=== PATIENT | male | born 1960 | race Caucasian/White ===

== ENCOUNTER 2018-10-12 14:24 | Inpatient (IN) | payer OTHER ==
[2018-10-12 18:04] VITALS: BMI 22.8
--- NOTE | 2018-10-12 18:41 | HP ---
CIWA Score Nausea/Vomitin-No Nausea/No Vomiting Muscle Tremors: 1-None Visible, but [place] Anxiety: 4-Mod. Anxious/Guarded Agitation: 4-Moderately Restless Paroxysmal Sweats: 3 Orientation: 0-Oriented Tacttile Disturbances: 0-None Auditory Disturbances: 0-None Visual Disturbances: 2-Mild Sensitivity Headache: 0-None Present CIWA-Ar Total Score: 14 - Admission Criteria OASAS Guidelines: Admission for Medically Managed Detox: Requires at least one of the followin. CIWA greater than 12 2. Seizures within the past 24 hours 3. Delirium tremens within the past 24 hours 4. Hallucinations within the past 24 hours 5. Acute intervention needed for co occurring medical disorder 6. Acute intervention needed for co occurring psychiatric disorder 7. Severe withdrawal that cannot be handled at a lower level of care (continued vomiting, continued diarrhea, abnormal vital signs) requiring intravenous medication and/or fluids 8. Admission ROS BHS - HPI Allergies/Adverse Reactions: Allergies Allergy/AdvReac Type Severity Reaction Status Date / Time No Known Allergies Allergy Verified 10/12/18 17:40 History of Present Illness: pt here requesting detox from etoh use , reports 3 beers /day x 20 years , reports symptoms if not drinking as above , cravings " I drink when I got money " , tobacco - 1 ppd . Pt is very poor historian , minimizing use , reports moderate memory loss. PMHX - denies PSHx : ying knees 5 years ago tkr meds - see list Exam Limitations: No Limitations, Clinical Condition - Ebola screening Have you traveled outside of the country in the last 21 days: No (N) Have you had contact with anyone from an Ebola affected area: No Do you have a fever: No - Review of Systems Constitutional: See HPI EENT: reports: See HPI, Other (denies vision changes, denies dysphagia) Respiratory: reports: No Symptoms reported Cardiac: reports: No Symptoms Reported GI: reports: No Symptoms Reported : reports: No Symptoms Reported Musculoskeletal: reports: No Symptoms Reported Integumentary: reports: No Symptoms Reported Neuro: reports: No Symptoms reported Endocrine: reports: No Symptoms Reported Psychiatric: reports: Orientated x3, Agitated, Anxious Patient History - Smoking Cessation Smoking history: Current every day smoker Have you smoked in the past 12 months: Yes Aproximately how many cigarettes per day: 20 Hx Chewing Tobacco Use: No Initiated information on smoking cessation: No - Substances abused Alcohol Substance route: Oral Frequency: Daily Amount used: 2 beers Age of first use: 18 Date of last use: 10/12/18 Family Disease History - Family Disease History Family History: Denies Admission Physical Exam BHS - Vital Signs Vital Signs: Vital Signs - 24 hr 10/12/18 10/12/18 17:59 18:29 Temperature 97.8 F 97.8 F Pulse Rate 74 74 Respiratory 18 18 Rate Blood Pressure 137/59 L 137/59 L - Physical General Appearance: Yes: Disheveled, Moderate Distress, Alcohol on Breath, Intoxicated, Anxious HEENTM: Yes: EOMI, Hearing grossly Normal, Normocephalic, Normal Voice, Other ( poor dentition, many missing teeth) Respiratory: Yes: Chest Non-Tender, Lungs Clear, Normal Breath Sounds Neck: Yes: No masses,lesions,Nodules, Trachea in good position Cardiology: Yes: Regular Rhythm, Regular Rate, S1, S2 Abdominal: Yes: Non Tender, Soft Back: Yes: Normal Inspection Musculoskeletal: Yes: Joint Stiffness (r knee decreased AROM , + crepitus), Other (ambulating w/ cane for r knee pain / balance/ stability .) Extremities: Yes: Non-Tender, Tremors, Erythema (ying hands , oa deformities) Neurological: Yes: Motor Strength 5/5 Integumentary: Yes: Warm - Diagnostic (1) Alcohol dependence Current Visit: Yes Status: Acute Qualifiers: Substance use status: uncomplicated Qualified Code(s): F10.20 - Alcohol dependence, uncomplicated Breathalyzer - Breathalyzer Breathalyzer: 0.031 Urine Drug Screen - Test Device Lot number: [id number] Expiration date: 06/08/20 - Control Is test valid?: Yes - Results Drug screen NEGATIVE: No Urine drug screen results: THC-Marijuana Inpatient Rehab Admission - Rehab Decision to Admit Inpatient rehab admission?: No
[2018-10-12] MEDS ORDERED: NICOTINE POLACRILEX 2 MG GUM BUC PRN (18:47)
[2018-10-12] MEDS ORDERED: MENTHOL/PHENOL 1 EACH UD MM PRN (18:47)
[2018-10-12] MEDS ORDERED: BISMUTH SUBSALICYLATE 524 MG/30 ML UD PO PRN (18:47)
[2018-10-12] MEDS ORDERED: MAGNESIUM HYDROX 2400MG/30ML ORAL SUSPENSION 30 ML CUP PO PRN (18:47)
[2018-10-12] MEDS ORDERED: MAGNESIUM CITRATE 300 ML BOTTLE PO PRN (18:47)
[2018-10-12] MEDS ORDERED: ACETAMINOPHEN 325 MG TABLET (FP) PO PRN ×2 (18:47)
[2018-10-12] MEDS: diazePAM 5 MG TABLET PO PRN (20:16)
[2018-10-12] MEDS: NAPROXEN 500 MG TABLET (FP) PO SCH (22:48)
[2018-10-12] MEDS: THIAMINE HCL 100 MG TABLET (FP) PO SCH (22:48)
[2018-10-12] MEDS: diazePAM 5 MG TABLET PO SCH (22:48)
[2018-10-13] MEDS: diazePAM 5 MG TABLET PO SCH ×3 (06:07→22:37)
[2018-10-13] MEDS: diazePAM 5 MG TABLET PO PRN (08:47)
[2018-10-13] MEDS ORDERED: PATIENT'S OWN MEDICATION (NON-FORMULARY) (Omeprazole 40 MG) PO SCH ×2 (10:00)
[2018-10-13 10:08] LABS: HEMATOCRIT 43.4 % (35.4-49); HEMOGLOBIN 14.2 GM/dL (11.7-16.9); MCH 33.3 pg (25.7-33.7); MCHC 32.6 g/dl (32.0-35.9); MEAN PLT VOLUME 8.4 fl (7.5-11.1); PLATELET COUNT 171 K/MM3 (134-434); RBC 4.26 M/mm3 (4.00-5.60); RDW 15.4 % (11.9-15.9); WHITE BLOOD COUNT 8.1 K/mm3 (4.0-10.0)
[2018-10-13 10:12] LABS: ALBUMIN 3.8 g/dl (3.4-5.0); ALK PHOS 95 U/L (45-117); ANION GAP 6 MMOL/L (8-16); BILIRUBIN,TOTAL 0.5 mg/dL (0.2-1); BLOOD UREA NITROGEN 16 mg/dL (7-18); CALCIUM 8.6 mg/dL (8.5-10.1); CHLORIDE 105 mmol/L (98-107); CO2 29 mmol/L (21-32); CREATININE 0.9 mg/dL (0.55-1.3); GLUCOSE,RANDOM 94 mg/dL (74-106); POTASSIUM 3.8 mmol/L (3.5-5.1); SGOT/AST 38 U/L (15-37); SGPT/ALT 41 U/L (13-61); SODIUM 140 mmol/L (136-145)
[2018-10-13] MEDS: METHYL SALICYLATE/MENTHOL OINT 30 GM TUBE TP SCH (10:29)
[2018-10-13] MEDS: PRENATAL VITAMINS W/ FOLIC ACID TABLET (FP) PO SCH (10:29)
[2018-10-13] MEDS: PANTOPRAZOLE 40 MG TABLET (FP) PO SCH (10:30)
[2018-10-13] MEDS: NAPROXEN 500 MG TABLET (FP) PO SCH ×2 (10:30→22:37)
--- NOTE | 2018-10-13 11:38 | EKG ---
Test Reason : Blood Pressure : / mmHG Vent. Rate : 060 BPM Atrial Rate : 060 BPM P-R Int : 120 ms QRS Dur : 088 ms QT Int : 452 ms P-R-T Axes : 015 066 076 degrees QTc Int : 452 ms NORMAL SINUS RHYTHM NORMAL ECG NO PREVIOUS ECGS AVAILABLE Confirmed by DAISHA LEE, BRY ([id number]) on 10/13/2018 11:38:23 AM Referred By: Confirmed By:BRY ASHTON MD
[2018-10-13] MEDS ORDERED: METHOCARBAMOL 500 MG TABLET PO PRN (13:27)
--- NOTE | 2018-10-13 14:00 | PN ---
S CIWA - CIWA Score Nausea/Vomitin-No Nausea/No Vomiting Muscle Tremors: 3 Anxiety: 3 Agitation: 1-Slight > Activity Paroxysmal Sweats: 3 Orientation: 0-Oriented Tacttile Disturbances: 0-None Auditory Disturbances: 2-Mild Harshness/Frighten Visual Disturbances: 0-None Headache: 0-None Present CIWA-Ar Total Score: 12 BHS Progress Note (SOAP) Subjective: Tremors, Anxious, Sweating, Body Aches. Objective: PATIENT A & O X 3, OBSERVED AMBULATING ON UNIT. IN NO ACUTE DISTRESS. 10/13/18 14:01 Vital Signs Temperature 98.1 F 10/13/18 13:19 Pulse Rate 61 10/13/18 13:19 Respiratory Rate 18 10/13/18 13:19 Blood Pressure 141/78 10/13/18 13:19 O2 Sat by Pulse Oximetry (%) Laboratory Tests 10/13/18 10/13/18 10/13/18 07:45 07:45 07:45 WBC 8.1 RBC 4.26 Hgb 14.2 Hct 43.4 MCV 102.0 H MCH 33.3 MCHC 32.6 RDW 15.4 Plt Count 171 MPV 8.4 Sodium 140 Potassium 3.8 Chloride 105 Carbon Dioxide 29 Anion Gap 6 L BUN 16 Creatinine 0.9 Creat Clearance w eGFR 86.08 Random Glucose 94 Calcium 8.6 Total Bilirubin 0.5 AST 38 H ALT 41 Alkaline Phosphatase 95 Total Protein 7.0 Albumin 3.8 RPR Titer Nonreactive LABS NOTED. Assessment: 10/13/18 14:02 WITHDRAWAL SYMPTOMS. Plan: CONTINUE DETOX. INCREASE DAILY PO FLUID INTAKE. PRN ROBAXIN PO FOR BODY ACHES / MUSCLE SPASMS.
[2018-10-13] MEDS: THIAMINE HCL 100 MG TABLET (FP) PO SCH (22:37)
[2018-10-13] MEDS: MELATONIN 5 MG TABLETS PO PRN (22:38)
[2018-10-14] MEDS: diazePAM 5 MG TABLET PO PRN ×3 (03:24→17:30)
[2018-10-14] MEDS: METHYL SALICYLATE/MENTHOL OINT 30 GM TUBE TP SCH (10:16)
[2018-10-14] MEDS: PANTOPRAZOLE 40 MG TABLET (FP) PO SCH (10:17)
[2018-10-14] MEDS: PRENATAL VITAMINS W/ FOLIC ACID TABLET (FP) PO SCH (10:17)
[2018-10-14] MEDS: NAPROXEN 500 MG TABLET (FP) PO SCH ×2 (10:17→22:17)
[2018-10-14] MEDS: diazePAM 5 MG TABLET PO SCH ×2 (10:17→22:18)
[2018-10-14] MEDS: MAG HYDROX/AL HYDROX/SIMETH 30 ML UNIT-DOSE CUP PO PRN ×2 (12:05→22:18)
--- NOTE | 2018-10-14 13:24 | PN ---
S CIWA - CIWA Score Nausea/Vomitin-Mild Nausea/No Vomiting Muscle Tremors: 2 Anxiety: 1-Mildly Anxious Agitation: 2 Paroxysmal Sweats: 1-Minimal Palms Moist Orientation: 0-Oriented Tacttile Disturbances: 0-None Auditory Disturbances: 0-None Visual Disturbances: 0-None Headache: 1-Very Mild CIWA-Ar Total Score: 8 S Progress Note (SOAP) Subjective: long history of joints pain and alcohol misuse felling ok today ambulating on hallway social with peers in day room Objective: 10/14/18 13:26 Vital Signs Temperature 96.8 F L 10/14/18 09:41 Pulse Rate 76 10/14/18 09:41 Respiratory Rate 18 10/14/18 09:41 Blood Pressure 147/80 10/14/18 09:41 O2 Sat by Pulse Oximetry (%) Laboratory Last Values WBC 8.1 K/mm3 (4.0-10.0) 10/13/18 07:45 RBC 4.26 M/mm3 (4.00-5.60) 10/13/18 07:45 Hgb 14.2 GM/dL (11.7-16.9) 10/13/18 07:45 Hct 43.4 % (35.4-49) 10/13/18 07:45 MCV 102.0 fl (80-96) H 10/13/18 07:45 MCH 33.3 pg (25.7-33.7) 10/13/18 07:45 MCHC 32.6 g/dl (32.0-35.9) 10/13/18 07:45 RDW 15.4 % (11.9-15.9) 10/13/18 07:45 Plt Count 171 K/MM3 (134-434) 10/13/18 07:45 MPV 8.4 fl (7.5-11.1) 10/13/18 07:45 Sodium 140 mmol/L (136-145) 10/13/18 07:45 Potassium 3.8 mmol/L (3.5-5.1) 10/13/18 07:45 Chloride 105 mmol/L (98-107) 10/13/18 07:45 Carbon Dioxide 29 mmol/L (21-32) 10/13/18 07:45 Anion Gap 6 MMOL/L (8-16) L 10/13/18 07:45 BUN 16 mg/dL (7-18) 10/13/18 07:45 Creatinine 0.9 mg/dL (0.55-1.3) 10/13/18 07:45 Creat Clearance w eGFR 86.08 (>60) 10/13/18 07:45 Random Glucose 94 mg/dL (74-106) 10/13/18 07:45 Calcium 8.6 mg/dL (8.5-10.1) 10/13/18 07:45 Total Bilirubin 0.5 mg/dL (0.2-1) 10/13/18 07:45 AST 38 U/L (15-37) H 10/13/18 07:45 ALT 41 U/L (13-61) 10/13/18 07:45 Alkaline Phosphatase 95 U/L (45-117) 10/13/18 07:45 Total Protein 7.0 g/dl (6.4-8.2) 10/13/18 07:45 Albumin 3.8 g/dl (3.4-5.0) 10/13/18 07:45 RPR Titer Nonreactive (NONREACTIVE) 10/13/18 07:45 lab noted Assessment: 10/14/18 13:26 withdrawal sx Plan: continue detox
[2018-10-14] MEDS: THIAMINE HCL 100 MG TABLET (FP) PO SCH (22:18)
[2018-10-14] MEDS: MELATONIN 5 MG TABLETS PO PRN (22:18)
[2018-10-15] MEDS ORDERED: diazePAM 5 MG TABLET PO SCH (06:00)
[2018-10-15 06:38] VITALS: TEMP 97.1
[2018-10-15 06:55] VITALS: BP 153/79; PULSE 75
--- NOTE | 2018-10-15 13:00 | DS ---
[facility] Detox Discharge Summary Admission Date: 10/12/18 Discharge Date: 10/15/18 - History Present History: Alcohol Dependence Additional Comments: 58 years old male admitted on 10/12/18 for alcohol withdrawal stabilization feeling better today preferring begin alcohol rehab today that mother is in town would like to meet with mother today patient is alert no acute distress denies suicidal ideation - Physical Exam Results Vital Signs: Vital Signs Temperature 97.1 F L 10/15/18 06:55 Pulse Rate 75 10/15/18 06:55 Respiratory Rate 18 10/15/18 06:55 Blood Pressure 153/79 10/15/18 06:55 O2 Sat by Pulse Oximetry (%) Pertinent Admission Physical Exam Findings: alcohol withdrawal sx Laboratory Last Values WBC 8.1 K/mm3 (4.0-10.0) 10/13/18 07:45 RBC 4.26 M/mm3 (4.00-5.60) 10/13/18 07:45 Hgb 14.2 GM/dL (11.7-16.9) 10/13/18 07:45 Hct 43.4 % (35.4-49) 10/13/18 07:45 MCV 102.0 fl (80-96) H 10/13/18 07:45 MCH 33.3 pg (25.7-33.7) 10/13/18 07:45 MCHC 32.6 g/dl (32.0-35.9) 10/13/18 07:45 RDW 15.4 % (11.9-15.9) 10/13/18 07:45 Plt Count 171 K/MM3 (134-434) 10/13/18 07:45 MPV 8.4 fl (7.5-11.1) 10/13/18 07:45 Sodium 140 mmol/L (136-145) 10/13/18 07:45 Potassium 3.8 mmol/L (3.5-5.1) 10/13/18 07:45 Chloride 105 mmol/L (98-107) 10/13/18 07:45 Carbon Dioxide 29 mmol/L (21-32) 10/13/18 07:45 Anion Gap 6 MMOL/L (8-16) L 10/13/18 07:45 BUN 16 mg/dL (7-18) 10/13/18 07:45 Creatinine 0.9 mg/dL (0.55-1.3) 10/13/18 07:45 Creat Clearance w eGFR 86.08 (>60) 10/13/18 07:45 Random Glucose 94 mg/dL (74-106) 10/13/18 07:45 Calcium 8.6 mg/dL (8.5-10.1) 10/13/18 07:45 Total Bilirubin 0.5 mg/dL (0.2-1) 10/13/18 07:45 AST 38 U/L (15-37) H 10/13/18 07:45 ALT 41 U/L (13-61) 10/13/18 07:45 Alkaline Phosphatase 95 U/L (45-117) 10/13/18 07:45 Total Protein 7.0 g/dl (6.4-8.2) 10/13/18 07:45 Albumin 3.8 g/dl (3.4-5.0) 10/13/18 07:45 RPR Titer Nonreactive (NONREACTIVE) 10/13/18 07:45 lab noted - Treatment Hospital Course: Detox Protocol Followed, Detoxed Safely, Responded well, Discharged Condition Good, Rehab Referral Accepted Patient has Accepted a Rehab Referral to: [facility] - Medication Discharge Medications: Ambulatory Orders Cholecalciferol (Vitamin D3) [Vitamin D3] 1.2 mg PO WEEKLY 10/12/18 Cyanocobalamin 1,000 mcg IM WEEKLY 10/12/18 Diclofenac Sodium 1 applic DAILY 10/12/18 Naproxen [Naprosyn] 550 mg PO BID 10/12/18 Omeprazole 40 mg PO DAILY 10/12/18 - Diagnosis (1) Alcohol dependence Status: Acute Qualifiers: Substance use status: uncomplicated Qualified Code(s): F10.20 - Alcohol dependence, uncomplicated - AMA Did Patient Leave Against Medical Advice: No
== END 2018-10-15 09:33 | disposition home or self-care (01) | DRG 775 ==
LOC: YASAS 14:24 → Y3N 19:10
PROVIDERS: ADMIT Surgery; ATTEND Surgery
PROC: HZ2ZZZZ Detoxification Services for Substance Abuse Treatment (ICD-10-PCS; principal; 2018-10-15)
DX: F10.230 Alcohol dependence with withdrawal, uncomplicated (principal); F17.210 Nicotine dependence, cigarettes, uncomplicated
CPT/HCPCS: 36415; 80053; 85027; 86593; 93005; 93010

== ENCOUNTER 2018-12-10 21:25 | Inpatient (IN) | payer OTHER ==
[2018-12-10 21:56] VITALS: BMI 25.7
--- NOTE | 2018-12-10 23:12 | HP ---
CIWA Score Nausea/Vomitin Muscle Tremors: 3 Anxiety: 2 Agitation: 2 Paroxysmal Sweats: 2 Orientation: 0-Oriented Tacttile Disturbances: 2-Mild Itch/Numbness/Burn Auditory Disturbances: 3-Moderate Harsh/Frighten Visual Disturbances: 2-Mild Sensitivity Headache: 2-Mild CIWA-Ar Total Score: 20 - Admission Criteria OASAS Guidelines: Admission for Medically Managed Detox: Requires at least one of the followin. CIWA greater than 12 2. Seizures within the past 24 hours 3. Delirium tremens within the past 24 hours 4. Hallucinations within the past 24 hours 5. Acute intervention needed for co occurring medical disorder 6. Acute intervention needed for co occurring psychiatric disorder 7. Severe withdrawal that cannot be handled at a lower level of care (continued vomiting, continued diarrhea, abnormal vital signs) requiring intravenous medication and/or fluids 8. Admission ROS BHS - HPI Chief Complaint: DEPENDENT ON ETOH ONLY Allergies/Adverse Reactions: Allergies Allergy/AdvReac Type Severity Reaction Status Date / Time No Known Allergies Allergy Verified 12/10/18 21:51 History of Present Illness: THE PT. IS REQUESTING ADMISSION TO THE DETOX UNIT AND CAME FOR MEDICAL CLEARANCE Exam Limitations: No Limitations - Ebola screening Have you traveled outside of the country in the last 21 days: No (N) Have you had contact with anyone from an Ebola affected area: No Have you been sick,other than usual withdrawal symptoms: No Do you have a fever: No - Review of Systems Constitutional: See HPI EENT: reports: See HPI Respiratory: reports: See HPI Cardiac: reports: See HPI GI: reports: See HPI, Nausea, Abdominal cramping : reports: See HPI Musculoskeletal: reports: See HPI, Muscle Pain, Muscle Weakness Neuro: reports: See HPI, Headache, Tremors, Weakness Endocrine: reports: See HPI Hematology: reports: See HPI Psychiatric: reports: Judgement Intact, Orientated x3, Anxious, Depressed Patient History - Patient Medical History Hx Seizures: No Hx Diabetes: No Hx Human Immunodeficiency Virus (HIV): No Hx Hepatitis C: No Hx Depression: No Hx Suicide Attempt: No - Patient Surgical History Past Surgical History: No - PPD History Date: 10/14/18 - Smoking Cessation Smoking history: Current every day smoker Have you smoked in the past 12 months: Yes Aproximately how many cigarettes per day: 20 Hx Chewing Tobacco Use: No Initiated information on smoking cessation: Yes 'Breaking Loose' booklet given: 12/10/18 - Substance & Tx. History Hx Alcohol Use: Yes Hx Substance Use: Yes Substance Use Type: Alcohol Hx Substance Use Treatment: Yes - Substances abused Alcohol Substance route: Oral Frequency: Daily Amount used: BEER - 1 six pack Age of first use: 18 Date of last use: 12/10/18 Family Disease History - Family Disease History Family Disease History: Other: Father (ETOH DEPENDENT) Admission Physical Exam [facility] - Vital Signs Vital Signs: Vital Signs - 24 hr 12/10/18 21:53 Temperature 97.5 F L Pulse Rate 70 Respiratory 18 Rate Blood Pressure 198/97 H - Physical General Appearance: Yes: No Apparent Distress, Nourished, Appropriately Dressed , Alcohol on Breath, Tremorous, Sweating, Anxious HEENTM: Yes: Hearing grossly Normal, Normocephalic, Normal Voice, YANG, Pharynx Normal Respiratory: Yes: Chest Non-Tender, Lungs Clear, Normal Breath Sounds, No Respiratory Distress, No Accessory Muscle Use Neck: Yes: No masses,lesions,Nodules, Supple, Trachea in good position Breast: Yes: Breast Exam Deferred, Axillae without masses Cardiology: Yes: Regular Rhythm, Regular Rate, S1, S2 Abdominal: Yes: Normal Bowel Sounds, Non Tender, Soft, Protuberent Back: Yes: Normal Inspection Musculoskeletal: Yes: full range of Motion, Muscle Pain, Muscle weakness Extremities: Yes: Normal Capillary Refill, Normal Range of Motion, Non-Tender, Tremors Neurological: Yes: exercise scientist II-XII NML intact, Fully Oriented, Alert, Motor Strength 5/5, Normal Response, Depressed Affect Integumentary: Yes: Normal Color, Warm, Moist Lymphatic: Yes: Within Normal Limits - Diagnostic (1) EtOH dependence Current Visit: Yes Status: Chronic Qualifiers: Substance use status: uncomplicated Qualified Code(s): F10.20 - Alcohol dependence, uncomplicated Cleared for Admission [facility] - Detox or Rehab [facility] Level of Care: Medically Managed Detox Regimen/Protocol: Librium Breathalyzer - Breathalyzer Breathalyzer: 0.134 Urine Drug Screen - Test Device Lot number: [id number] Expiration date: 06/08/20 - Control Is test valid?: Yes - Results Drug screen NEGATIVE: No Urine drug screen results: THC-Marijuana Inpatient Rehab Admission - Rehab Decision to Admit Inpatient rehab admission?: No
[2018-12-10] MEDS ORDERED: MAGNESIUM HYDROX 2400MG/30ML ORAL SUSPENSION 30 ML CUP PO PRN (23:16)
[2018-12-10] MEDS ORDERED: MAG HYDROX/AL HYDROX/SIMETH 30 ML UNIT-DOSE CUP PO PRN (23:16)
[2018-12-10] MEDS ORDERED: ACETAMINOPHEN 325 MG TABLET (FP) PO PRN ×2 (23:16)
[2018-12-10] MEDS ORDERED: chlordiazePOXIDE HCL 25 MG CAPSULE PO PRN (23:16)
[2018-12-10] MEDS ORDERED: MENTHOL/PHENOL 1 EACH UD MM PRN (23:16)
[2018-12-10] MEDS ORDERED: BISMUTH SUBSALICYLATE 524 MG/30 ML UD PO PRN (23:16)
[2018-12-10] MEDS ORDERED: NICOTINE POLACRILEX 4 MG GUM BUC PRN (23:16)
[2018-12-10] MEDS ORDERED: hydrOXYzine PAMOATE 25 MG CAPSULE (FP) PO PRN (23:16)
[2018-12-10] MEDS ORDERED: IBUPROFEN 400 MG TABLET (FP) PO PRN (23:16)
[2018-12-10] MEDS ORDERED: MAGNESIUM CITRATE 300 ML BOTTLE PO PRN (23:16)
[2018-12-11] MEDS: chlordiazePOXIDE HCL 25 MG CAPSULE PO SCH ×5 (00:28→22:01)
[2018-12-11] MEDS: METHOCARBAMOL 500 MG TABLET PO PRN (00:29)
[2018-12-11] MEDS: NICOTINE 21 MG/24 HOURS TOPICAL PATCH TD SCH (10:14)
[2018-12-11] MEDS: PRENATAL VITAMINS W/ FOLIC ACID TABLET (FP) PO SCH (10:14)
[2018-12-11 10:35] LABS: HEMATOCRIT 41.6 % (35.4-49); HEMOGLOBIN 13.9 GM/dL (11.7-16.9); MCHC 33.4 g/dl (32.0-35.9); MEAN CELL VOLUME 101.7 fl (80-96); MEAN PLT VOLUME 8.8 fl (7.5-11.1); PLATELET COUNT 111 K/MM3 (134-434); RBC 4.09 M/mm3 (4.00-5.60); RDW 14.2 % (11.9-15.9); WHITE BLOOD COUNT 5.4 K/mm3 (4.0-10.0)
[2018-12-11 10:47] LABS: ALBUMIN 3.6 g/dl (3.4-5.0); BILIRUBIN,TOTAL 0.6 mg/dL (0.2-1); CALCIUM 9.1 mg/dL (8.5-10.1); CREATININE 0.7 mg/dL (0.55-1.3); POTASSIUM 3.7 mmol/L (3.5-5.1)
--- NOTE | 2018-12-11 12:23 | PN ---
S CIWA - CIWA Score Nausea/Vomitin Muscle Tremors: 2 Anxiety: 2 Agitation: 3 Paroxysmal Sweats: 1-Minimal Palms Moist Orientation: 0-Oriented Tacttile Disturbances: 1-Very Mild Itch/Numbness Auditory Disturbances: 1-Very Mild Visual Disturbances: 0-None Headache: 2-Mild CIWA-Ar Total Score: 14 S Progress Note (SOAP) Subjective: alert,irritable,anxious,interrupted sleep,tremor Objective: 12/11/18 12:22 Vital Signs Temperature 97.9 F 12/11/18 10:12 Pulse Rate 65 12/11/18 10:12 Respiratory Rate 18 12/11/18 10:12 Blood Pressure 123/72 12/11/18 10:12 O2 Sat by Pulse Oximetry (%) Laboratory Last Values WBC 5.4 K/mm3 (4.0-10.0) 12/11/18 07:00 RBC 4.09 M/mm3 (4.00-5.60) 12/11/18 07:00 Hgb 13.9 GM/dL (11.7-16.9) 12/11/18 07:00 Hct 41.6 % (35.4-49) 12/11/18 07:00 MCV 101.7 fl (80-96) H 12/11/18 07:00 MCH 34.0 pg (25.7-33.7) H 12/11/18 07:00 MCHC 33.4 g/dl (32.0-35.9) 12/11/18 07:00 RDW 14.2 % (11.9-15.9) 12/11/18 07:00 Plt Count 111 K/MM3 (134-434) L D 12/11/18 07:00 MPV 8.8 fl (7.5-11.1) 12/11/18 07:00 Sodium 141 mmol/L (136-145) 12/11/18 07:00 Potassium 3.7 mmol/L (3.5-5.1) 12/11/18 07:00 Chloride 104 mmol/L (98-107) 12/11/18 07:00 Carbon Dioxide 33 mmol/L (21-32) H 12/11/18 07:00 Anion Gap 5 MMOL/L (8-16) L 12/11/18 07:00 BUN 6 mg/dL (7-18) L 12/11/18 07:00 Creatinine 0.7 mg/dL (0.55-1.3) 12/11/18 07:00 Est GFR (CKD-EPI)AfAm 118.88 12/11/18 07:00 Est GFR (CKD-EPI)NonAf 102.57 12/11/18 07:00 Random Glucose 74 mg/dL (74-106) 12/11/18 07:00 Calcium 9.1 mg/dL (8.5-10.1) 12/11/18 07:00 Total Bilirubin 0.6 mg/dL (0.2-1) 12/11/18 07:00 AST 42 U/L (15-37) H 12/11/18 07:00 ALT 31 U/L (13-61) 12/11/18 07:00 Alkaline Phosphatase 103 U/L (45-117) 12/11/18 07:00 Total Protein 7.0 g/dl (6.4-8.2) 12/11/18 07:00 Albumin 3.6 g/dl (3.4-5.0) 12/11/18 07:00 RPR Titer Nonreactive (NONREACTIVE) 12/11/18 07:00 Assessment: 12/11/18 12:23 withdrawal symptom Plan: continue detox librium regimen
[2018-12-11] MEDS: THIAMINE HCL 100 MG TABLET (FP) PO SCH (21:42)
[2018-12-11] MEDS: MELATONIN 5 MG TABLETS PO PRN (21:43)
[2018-12-12] MEDS: chlordiazePOXIDE HCL 25 MG CAPSULE PO SCH ×3 (06:10→17:34)
[2018-12-12] MEDS: NICOTINE 21 MG/24 HOURS TOPICAL PATCH TD SCH (10:18)
[2018-12-12] MEDS: PRENATAL VITAMINS W/ FOLIC ACID TABLET (FP) PO SCH (10:18)
[2018-12-12] MEDS: METHOCARBAMOL 500 MG TABLET PO PRN ×2 (10:21→20:49)
--- NOTE | 2018-12-12 11:04 | PN ---
S CIWA - CIWA Score Nausea/Vomitin-Mild Nausea/No Vomiting Muscle Tremors: 3 Anxiety: 2 Agitation: 2 Paroxysmal Sweats: 1-Minimal Palms Moist Orientation: 0-Oriented Tacttile Disturbances: 1-Very Mild Itch/Numbness Auditory Disturbances: 0-None Visual Disturbances: 0-None Headache: 1-Very Mild CIWA-Ar Total Score: 11 S Progress Note (SOAP) Subjective: mild tremor doing well with librium detox protocol Objective: 12/12/18 11:06 Vital Signs Temperature 98.6 F 12/12/18 09:38 Pulse Rate 65 12/12/18 09:38 Respiratory Rate 18 12/12/18 09:38 Blood Pressure 145/85 12/12/18 09:38 O2 Sat by Pulse Oximetry (%) Laboratory Last Values WBC 5.4 K/mm3 (4.0-10.0) 12/11/18 07:00 RBC 4.09 M/mm3 (4.00-5.60) 12/11/18 07:00 Hgb 13.9 GM/dL (11.7-16.9) 12/11/18 07:00 Hct 41.6 % (35.4-49) 12/11/18 07:00 MCV 101.7 fl (80-96) H 12/11/18 07:00 MCH 34.0 pg (25.7-33.7) H 12/11/18 07:00 MCHC 33.4 g/dl (32.0-35.9) 12/11/18 07:00 RDW 14.2 % (11.9-15.9) 12/11/18 07:00 Plt Count 111 K/MM3 (134-434) L D 12/11/18 07:00 MPV 8.8 fl (7.5-11.1) 12/11/18 07:00 Sodium 141 mmol/L (136-145) 12/11/18 07:00 Potassium 3.7 mmol/L (3.5-5.1) 12/11/18 07:00 Chloride 104 mmol/L (98-107) 12/11/18 07:00 Carbon Dioxide 33 mmol/L (21-32) H 12/11/18 07:00 Anion Gap 5 MMOL/L (8-16) L 12/11/18 07:00 BUN 6 mg/dL (7-18) L 12/11/18 07:00 Creatinine 0.7 mg/dL (0.55-1.3) 12/11/18 07:00 Est GFR (CKD-EPI)AfAm 118.88 12/11/18 07:00 Est GFR (CKD-EPI)NonAf 102.57 12/11/18 07:00 Random Glucose 74 mg/dL (74-106) 12/11/18 07:00 Calcium 9.1 mg/dL (8.5-10.1) 12/11/18 07:00 Total Bilirubin 0.6 mg/dL (0.2-1) 12/11/18 07:00 AST 42 U/L (15-37) H 12/11/18 07:00 ALT 31 U/L (13-61) 12/11/18 07:00 Alkaline Phosphatase 103 U/L (45-117) 12/11/18 07:00 Total Protein 7.0 g/dl (6.4-8.2) 12/11/18 07:00 Albumin 3.6 g/dl (3.4-5.0) 12/11/18 07:00 RPR Titer Nonreactive (NONREACTIVE) 12/11/18 07:00 lab noted Assessment: 12/12/18 11:06 alcohol withdrawal sx Plan: continue detox
[2018-12-12] MEDS: chlordiazePOXIDE HCL 10 MG CAPSULE PO SCH (22:59)
[2018-12-12] MEDS: MELATONIN 5 MG TABLETS PO PRN (22:59)
[2018-12-12] MEDS: THIAMINE HCL 100 MG TABLET (FP) PO SCH (22:59)
[2018-12-12] MEDS ORDERED: chlordiazePOXIDE HCL 10 MG CAPSULE PO PRN (23:00)
[2018-12-13] MEDS: chlordiazePOXIDE HCL 10 MG CAPSULE PO SCH ×4 (06:27→22:37)
[2018-12-13] MEDS: PRENATAL VITAMINS W/ FOLIC ACID TABLET (FP) PO SCH (10:22)
--- NOTE | 2018-12-13 13:11 | PN ---
[facility] CIWA - CIWA Score Nausea/Vomitin Muscle Tremors: 1-None Visible, but Moodus Anxiety: 2 Agitation: 2 Paroxysmal Sweats: 1-Minimal Palms Moist Orientation: 0-Oriented Tacttile Disturbances: 1-Very Mild Itch/Numbness Auditory Disturbances: 1-Very Mild Visual Disturbances: 0-None Headache: 1-Very Mild CIWA-Ar Total Score: 11 BHS Progress Note (SOAP) Subjective: alert,irritable,anxious,ambulation with cane Objective: 12/13/18 13:10 Vital Signs Temperature 96.9 F L 12/13/18 09:15 Pulse Rate 74 12/13/18 09:15 Respiratory Rate 20 12/13/18 09:15 Blood Pressure 156/89 12/13/18 09:15 O2 Sat by Pulse Oximetry (%) Assessment: 12/13/18 13:10 withdrawal symptom Plan: continue detox,dsicharge in am
[2018-12-13] MEDS: NICOTINE 21 MG/24 HOURS TOPICAL PATCH TD SCH (14:05)
[2018-12-13] MEDS: THIAMINE HCL 100 MG TABLET (FP) PO SCH (22:37)
[2018-12-13] MEDS: MELATONIN 5 MG TABLETS PO PRN (22:38)
[2018-12-14 09:38] VITALS: BP 133/67; PULSE 72; TEMP 96.7
[2018-12-14] MEDS: chlordiazePOXIDE HCL 10 MG CAPSULE PO SCH (10:31)
[2018-12-14] MEDS: PRENATAL VITAMINS W/ FOLIC ACID TABLET (FP) PO SCH (10:31)
[2018-12-14] MEDS: NICOTINE 21 MG/24 HOURS TOPICAL PATCH TD SCH (10:31)
--- NOTE | 2018-12-14 19:41 | DS ---
[facility] Detox Discharge Summary Admission Date: 12/10/18 Discharge Date: 12/14/18 - History Present History: Alcohol Dependence Additional Comments: PATIENT REFERRED TO [facility] ([place], [place]) FOR AFTERCARE. PATIENT WAS DISCHARGED FROM DETOX UNIT IN STABLE MEDICAL CONDITION. - Physical Exam Results Vital Signs: Vital Signs Temperature 96.7 F L 12/14/18 09:37 Pulse Rate 72 12/14/18 09:37 Respiratory Rate 18 12/14/18 09:37 Blood Pressure 133/67 12/14/18 09:37 O2 Sat by Pulse Oximetry (%) Pertinent Admission Physical Exam Findings: WITHDRAWAL SYMPTOMS. Laboratory Tests 12/11/18 12/11/18 12/11/18 07:00 07:00 07:00 WBC 5.4 RBC 4.09 Hgb 13.9 Hct 41.6 MCV 101.7 H MCH 34.0 H MCHC 33.4 RDW 14.2 Plt Count 111 L D MPV 8.8 Sodium 141 Potassium 3.7 Chloride 104 Carbon Dioxide 33 H Anion Gap 5 L BUN 6 L Creatinine 0.7 Est GFR (CKD-EPI)AfAm 118.88 Est GFR (CKD-EPI)NonAf 102.57 Random Glucose 74 Calcium 9.1 Total Bilirubin 0.6 AST 42 H ALT 31 Alkaline Phosphatase 103 Total Protein 7.0 Albumin 3.6 RPR Titer Nonreactive LABS NOTED. - Treatment Hospital Course: Detox Protocol Followed, Detoxed Safely, Responded well, Discharged Condition Good, Rehab Referral Accepted Patient has Accepted a Rehab Referral to: [facility] ([place], [place]). - Medication Discharge Medications: Ambulatory Orders NK [No Known Home Medication] 12/10/18 - Diagnosis (1) Alcohol dependence Status: Acute Qualifiers: Substance use status: in withdrawal Complication of substance-induced condition: uncomplicated Qualified Code(s): F10.230 - Alcohol dependence with withdrawal, uncomplicated - AMA Did Patient Leave Against Medical Advice: No
== END 2018-12-14 11:30 | disposition home or self-care (01) | DRG 775 ==
LOC: YASAS 21:25 → Y3N 23:23
PROVIDERS: ADMIT Surgery; ATTEND Surgery
PROC: HZ2ZZZZ Detoxification Services for Substance Abuse Treatment (ICD-10-PCS; principal; 2018-12-10)
DX: F10.230 Alcohol dependence with withdrawal, uncomplicated (principal); F12.20 Cannabis dependence, uncomplicated; F17.210 Nicotine dependence, cigarettes, uncomplicated
CPT/HCPCS: 36415; 80053; 85027; 86593